=== PATIENT | male | born 1940 | race Caucasian/White ===

== ENCOUNTER 2022-04-09 15:06 | Inpatient (IN) ==
[2022-04-09] MEDS ORDERED: DEXAMETHASONE 4 MG/1 ML VIAL IV STA (16:50)
[2022-04-09 17:16] LABS: Basophils % 0.4 % (0.0-0.8); Eosinophils # 0.1 10*3/uL (0.0-0.87); Eosinophils % 1.2 % (0.00-10.9); Hematocrit 40.5 VOL% (42.0-52.0); Hemoglobin 12.1 GM/DL (14.0-18.0); Immature Granulocytes % 0.4 %; Immature Granulocytes Absolute 0.02 #; Lymphocytes % 19.7 % (21.2-54.2); Mean Corpuscular HGB Conc 29.9 GM/DL (32-36); Mean Corpuscular Volume 85.6 FL (87-102); Monocytes # 0.6 10*3/uL (0.11-0.8); Monocytes % 12.2 % (1.7-12.7); Neutrophils % 66.1 % (38.7-73.9); Platelet Count 189 T/CUMM (130-400); Red Blood Count 4.73 MC/CUMM (3.8-5.5); Red Cell Distribution Width 15.7 % (9.3-17.3); White Blood Count 5.2 T/CUMM (4-12)
[2022-04-09 17:17] LABS: Alanine Aminotransferase 19 U/L (16-61); Alkaline Phosphatase 161 U/L (45-117); Aspartate Amino Transferase 21 U/L (0-37); Bilirubin,Total < 0.39 MG/DL (0.20-1.00); Blood Urea Nitrogen 11 MG/DL (7-18); Carbon Dioxide 34 MMOL/L (21-32); Chloride 103 MMOL/L (98-107); Glucose 128 MG/DL (74-106); Osmolality,Calculated 281.3 MOS/KG (273-304); Potassium 3.7 MMOL/L (3.5-5.1); Sodium 141 MMOL/L (136-145); Total Protein 6.6 G/DL (6.4-8.2)
[2022-04-09] MEDS ORDERED: ONDANSETRON 4 MG/2 ML VIAL IV PRN (17:33)
[2022-04-09] MEDS ORDERED: DOCUSATE SODIUM 100 MG CAPSULE PO PRN (17:33)
[2022-04-09] MEDS ORDERED: guaiFENesin/DM ER 600-30 MG TABLET PO PRN (17:33)
[2022-04-09] MEDS ORDERED: ALBUTEROL 2.5 MG/3 ML NEB RESP TX PRN (17:33)
[2022-04-09] MEDS ORDERED: GLUCAGON 1 MG VIAL IM PRN (17:33)
[2022-04-09] MEDS ORDERED: MORPHINE 2 MG/1 ML SYRINGE IV PRN (17:33)
[2022-04-09] MEDS ORDERED: ACETAMINOPHEN 325 MG TABLET PO PRN (17:33)
[2022-04-09] MEDS ORDERED: DEXTROSE 10% 250 ML BAG IV PRN (17:41)
[2022-04-09] MEDS: hydrALAZINE 20 MG/1 ML VIAL IV PRN (18:45)
[2022-04-09] MEDS: cefTRIAXone 1,000 MG in SODIUM CHLORIDE 0.9% 100 ML IV SCH (18:55)
[2022-04-09 19:10] LABS: Calcium Oxalate Crystals,Urine Occasional /HPF (Few); Mucus,Urine Few /LPF (Occasional); RBC,Urine 8 /HPF (0-4); Urine Appearance Clear (Clear); Urine Color Yellow (Yellow); Urine Specific Gravity 1.023 (1.001-1.035)
[2022-04-09 19:11] LABS: Bilirubin,Urine Negative (Negative); Blood, Urine Negative (Negative); Glucose,Urine (UA) Negative (Negative); Ketones,Urine Trace mg/dL (Negative); Nitrite,Urine Negative (Negative); Protein,Urine Negative (Negative); Urine Urobilinogen 0.2 eU/dL (<2.0)
[2022-04-09] MEDS: AZITHROMYCIN INJ 500 MG in SODIUM CHLORIDE 0.9% 250 ML IV SCH (19:25)
[2022-04-09] MEDS: ALBUTEROL/IPRATROPIUM 3 ML NEB RESP TX SCH (19:26)
[2022-04-09] MEDS: LOSARTAN 50 MG TABLET PO SCH (21:01)
[2022-04-10] MEDS: ALBUTEROL/IPRATROPIUM 3 ML NEB RESP TX SCH ×4 (00:26→19:58)
[2022-04-10] MEDS: DEXAMETHASONE 4 MG/1 ML VIAL IV SCH ×5 (01:01→23:11)
[2022-04-10 05:16] LABS: Hematocrit 40.2 VOL% (42.0-52.0); Immature Granulocytes % 0.3 %; Immature Granulocytes Absolute 0.01 #; Lymphocytes # 0.9 10*3/uL (1.4-4.0); Mean Corpuscular HGB Conc 29.4 GM/DL (32-36); Mean Corpuscular Volume 85.7 FL (87-102); Mean Platelet Volume 9.8 FL (9.6-12.0); Monocytes # 0.1 10*3/uL (0.11-0.8); Monocytes % 1.3 % (1.7-12.7); Neutrophils % 74.4 % (38.7-73.9); Platelet Count 186 T/CUMM (130-400); Red Blood Count 4.69 MC/CUMM (3.8-5.5); Red Cell Distribution Width 15.8 % (9.3-17.3); White Blood Count 3.8 T/CUMM (4-12)
[2022-04-10 05:22] LABS: Hemoglobin 11.8 GM/DL (14.0-18.0)
[2022-04-10 05:43] LABS: Alanine Aminotransferase 17 U/L (16-61); Albumin 2.7 G/DL (3.4-5.0); Alkaline Phosphatase 152 U/L (45-117); Aspartate Amino Transferase 14 U/L (0-37); Bilirubin,Total < 0.39 MG/DL (0.20-1.00); Blood Urea Nitrogen 12 MG/DL (7-18); Calcium 10.1 MG/DL (8.5-10.1); Carbon Dioxide 33 MMOL/L (21-32); Chloride 103 MMOL/L (98-107); Cholesterol 176 MG/DL (50-200); Glucose 193 MG/DL (74-106); HDL Cholesterol 57 MG/DL (40-60); Osmolality,Calculated 283.4 MOS/KG (273-304); Potassium 4.2 MMOL/L (3.5-5.1); Risk Ratio 3.09; Sodium 140 MMOL/L (136-145); Thyroid Stimulating Hormone 0.955 uIU/ml (0.358-3.74); Total Protein 6.8 G/DL (6.4-8.2); Triglycerides 57 MG/DL (2-150)
[2022-04-10 06:04] LABS: Anisocytosis Slight; Band Neutrophils 3 % (0-10); Lymphocytes 20 % (20-55); Platelet Estimate Normal; Total Cells Counted 100
[2022-04-10] MEDS ORDERED: DIAZEPAM 5 MG TABLET PO ONE (08:34)
[2022-04-10] MEDS: INSULIN REGULAR 100 UNIT/ML SUBCUT SCH ×2 (10:12→17:23)
[2022-04-10] MEDS: PANTOPRAZOLE 40 MG TABLET PO SCH (10:37)
[2022-04-10] MEDS: LOSARTAN 50 MG TABLET PO SCH ×2 (10:37→21:27)
[2022-04-10] MEDS: TAMSULOSIN 0.4 MG CAPSULE PO SCH (16:10)
[2022-04-10] MEDS: allopurinoL 100 MG TABLET PO SCH (16:10)
[2022-04-10] MEDS: POLYETHYLENE GLYCOL POWDER 17 GM PACK PO SCH (16:10)
[2022-04-10] MEDS: ATORVASTATIN 10 MG TABLET PO SCH (16:10)
[2022-04-10] MEDS: cefTRIAXone 1,000 MG in SODIUM CHLORIDE 0.9% 100 ML IV SCH (17:01)
[2022-04-10] MEDS: AZITHROMYCIN INJ 500 MG in SODIUM CHLORIDE 0.9% 250 ML IV SCH (17:45)
[2022-04-11] MEDS: ALBUTEROL/IPRATROPIUM 3 ML NEB RESP TX SCH ×4 (00:11→19:18)
[2022-04-11] MEDS: DEXAMETHASONE 4 MG/1 ML VIAL IV SCH ×4 (04:14→23:05)
[2022-04-11 05:17] LABS: Hematocrit 36.6 VOL% (42.0-52.0); Immature Granulocytes % 0.7 %; Immature Granulocytes Absolute 0.05 #; Lymphocytes # 0.6 10*3/uL (1.4-4.0); Lymphocytes % 8.8 % (21.2-54.2); Mean Corpuscular HGB Conc 30.1 GM/DL (32-36); Mean Corpuscular Volume 84.9 FL (87-102); Mean Platelet Volume 9.7 FL (9.6-12.0); Monocytes # 0.3 10*3/uL (0.11-0.8); Monocytes % 4.5 % (1.7-12.7); Platelet Count 190 T/CUMM (130-400); Red Blood Count 4.31 MC/CUMM (3.8-5.5); Red Cell Distribution Width 15.7 % (9.3-17.3); White Blood Count 6.7 T/CUMM (4-12)
[2022-04-11 05:41] LABS: Alanine Aminotransferase 17 U/L (16-61); Albumin 2.5 G/DL (3.4-5.0); Alkaline Phosphatase 130 U/L (45-117); Aspartate Amino Transferase 13 U/L (0-37); Bilirubin,Total < 0.39 MG/DL (0.20-1.00); Blood Urea Nitrogen 21 MG/DL (7-18); Calcium 9.6 MG/DL (8.5-10.1); Carbon Dioxide 33 MMOL/L (21-32); Chloride 104 MMOL/L (98-107); Glucose 194 MG/DL (74-106); Osmolality,Calculated 290.1 MOS/KG (273-304); Potassium 3.9 MMOL/L (3.5-5.1); Sodium 142 MMOL/L (136-145); Total Protein 6.2 G/DL (6.4-8.2)
[2022-04-11] MEDS: allopurinoL 100 MG TABLET PO SCH (09:30)
[2022-04-11] MEDS: POLYETHYLENE GLYCOL POWDER 17 GM PACK PO SCH (09:30)
[2022-04-11] MEDS: LOSARTAN 50 MG TABLET PO SCH ×2 (09:31→21:19)
[2022-04-11] MEDS: PANTOPRAZOLE 40 MG TABLET PO SCH (09:31)
[2022-04-11] MEDS: ATORVASTATIN 10 MG TABLET PO SCH (09:31)
[2022-04-11] MEDS: TAMSULOSIN 0.4 MG CAPSULE PO SCH (09:31)
[2022-04-11] MEDS: INSULIN REGULAR 100 UNIT/ML SUBCUT SCH ×2 (09:37→17:54)
[2022-04-11] MEDS: cefTRIAXone 1,000 MG in SODIUM CHLORIDE 0.9% 100 ML IV SCH (17:55)
[2022-04-11] MEDS: AZITHROMYCIN INJ 500 MG in SODIUM CHLORIDE 0.9% 250 ML IV SCH (19:45)
[2022-04-12 05:47] LABS: Alanine Aminotransferase 18 U/L (16-61); Albumin 2.5 G/DL (3.4-5.0); Alkaline Phosphatase 122 U/L (45-117); Aspartate Amino Transferase 16 U/L (0-37); Bilirubin,Total < 0.39 MG/DL (0.20-1.00); Blood Urea Nitrogen 26 MG/DL (7-18); Calcium 9.2 MG/DL (8.5-10.1); Carbon Dioxide 34 MMOL/L (21-32); Chloride 106 MMOL/L (98-107); Glucose 202 MG/DL (74-106); Osmolality,Calculated 293.1 MOS/KG (273-304); Potassium 4.1 MMOL/L (3.5-5.1); Sodium 142 MMOL/L (136-145)
[2022-04-12 05:52] LABS: Hematocrit 37.4 VOL% (42.0-52.0); Hemoglobin 11.1 GM/DL (14.0-18.0); Immature Granulocytes % 0.9 %; Immature Granulocytes Absolute 0.06 #; Lymphocytes # 0.5 10*3/uL (1.4-4.0); Lymphocytes % 7.6 % (21.2-54.2); Mean Corpuscular HGB Conc 29.7 GM/DL (32-36); Mean Corpuscular Volume 85.4 FL (87-102); Mean Platelet Volume 10.4 FL (9.6-12.0); Monocytes # 0.3 10*3/uL (0.11-0.8); Monocytes % 3.9 % (1.7-12.7); Neutrophils % 87.6 % (38.7-73.9); Platelet Count 186 T/CUMM (130-400); Red Blood Count 4.38 MC/CUMM (3.8-5.5); Red Cell Distribution Width 15.9 % (9.3-17.3); White Blood Count 6.9 T/CUMM (4-12)
[2022-04-12] MEDS: ALBUTEROL/IPRATROPIUM 3 ML NEB RESP TX SCH ×3 (07:17→19:10)
[2022-04-12] MEDS: DEXAMETHASONE 4 MG/1 ML VIAL IV SCH ×4 (07:31→23:46)
[2022-04-12] MEDS: ATORVASTATIN 10 MG TABLET PO SCH (09:54)
[2022-04-12] MEDS: TAMSULOSIN 0.4 MG CAPSULE PO SCH (09:54)
[2022-04-12] MEDS: POLYETHYLENE GLYCOL POWDER 17 GM PACK PO SCH (09:55)
[2022-04-12] MEDS: PANTOPRAZOLE 40 MG TABLET PO SCH (09:55)
[2022-04-12] MEDS: LOSARTAN 50 MG TABLET PO SCH ×2 (09:55→21:26)
[2022-04-12] MEDS: allopurinoL 100 MG TABLET PO SCH (09:55)
[2022-04-12] MEDS: INSULIN REGULAR 100 UNIT/ML SUBCUT SCH ×4 (09:57→21:26)
[2022-04-12] MEDS: cefTRIAXone 1,000 MG in SODIUM CHLORIDE 0.9% 100 ML IV SCH (17:19)
[2022-04-12] MEDS: AZITHROMYCIN INJ 500 MG in SODIUM CHLORIDE 0.9% 250 ML IV SCH (17:39)
[2022-04-13] MEDS: ALBUTEROL/IPRATROPIUM 3 ML NEB RESP TX SCH ×4 (00:03→19:25)
[2022-04-13] MEDS: DEXAMETHASONE 4 MG/1 ML VIAL IV SCH ×4 (05:18→23:50)
[2022-04-13 05:59] LABS: Alanine Aminotransferase 19 U/L (16-61); Albumin 2.4 G/DL (3.4-5.0); Alkaline Phosphatase 110 U/L (45-117); Aspartate Amino Transferase 14 U/L (0-37); Bilirubin,Total < 0.39 MG/DL (0.20-1.00); Blood Urea Nitrogen 23 MG/DL (7-18); Carbon Dioxide 34 MMOL/L (21-32); Chloride 107 MMOL/L (98-107); Glucose 151 MG/DL (74-106); Osmolality,Calculated 292.8 MOS/KG (273-304); Potassium 3.9 MMOL/L (3.5-5.1); Sodium 144 MMOL/L (136-145); Total Protein 5.9 G/DL (6.4-8.2)
[2022-04-13 06:01] LABS: Hematocrit 37.8 VOL% (42.0-52.0); Hemoglobin 11.2 GM/DL (14.0-18.0); Immature Granulocytes % 0.7 %; Immature Granulocytes Absolute 0.04 #; Lymphocytes # 0.5 10*3/uL (1.4-4.0); Lymphocytes % 8.8 % (21.2-54.2); Mean Corpuscular HGB Conc 29.6 GM/DL (32-36); Mean Corpuscular Volume 86.1 FL (87-102); Mean Platelet Volume 10.9 FL (9.6-12.0); Monocytes # 0.3 10*3/uL (0.11-0.8); Monocytes % 5.4 % (1.7-12.7); Neutrophils % 85.1 % (38.7-73.9); Platelet Count 168 T/CUMM (130-400); Red Blood Count 4.39 MC/CUMM (3.8-5.5); Red Cell Distribution Width 15.9 % (9.3-17.3); White Blood Count 5.6 T/CUMM (4-12)
[2022-04-13] MEDS: POLYETHYLENE GLYCOL POWDER 17 GM PACK PO SCH (09:36)
[2022-04-13] MEDS: allopurinoL 100 MG TABLET PO SCH (09:37)
[2022-04-13] MEDS: INSULIN REGULAR 100 UNIT/ML SUBCUT SCH ×4 (09:37→21:59)
[2022-04-13] MEDS: TAMSULOSIN 0.4 MG CAPSULE PO SCH (09:37)
[2022-04-13] MEDS: LOSARTAN 50 MG TABLET PO SCH ×2 (09:37→21:59)
[2022-04-13] MEDS: ATORVASTATIN 10 MG TABLET PO SCH (09:37)
[2022-04-13] MEDS: PANTOPRAZOLE 40 MG TABLET PO SCH (09:37)
[2022-04-13] MEDS ORDERED: amLODIPine 5 MG TABLET PO ONE (15:00)
[2022-04-13] MEDS: cefTRIAXone 1,000 MG in SODIUM CHLORIDE 0.9% 100 ML IV SCH (17:09)
[2022-04-13] MEDS: AZITHROMYCIN INJ 500 MG in SODIUM CHLORIDE 0.9% 250 ML IV SCH (17:53)
[2022-04-13] MEDS: hydrALAZINE 20 MG/1 ML VIAL IV PRN (22:00)
[2022-04-14] MEDS: ALBUTEROL/IPRATROPIUM 3 ML NEB RESP TX SCH ×4 (00:50→19:18)
[2022-04-14] MEDS: DEXAMETHASONE 4 MG/1 ML VIAL IV SCH ×4 (05:46→23:40)
[2022-04-14] MEDS: hydrALAZINE 20 MG/1 ML VIAL IV PRN ×2 (06:42→22:00)
[2022-04-14] MEDS: PANTOPRAZOLE 40 MG TABLET PO SCH (09:13)
[2022-04-14] MEDS: TAMSULOSIN 0.4 MG CAPSULE PO SCH (09:13)
[2022-04-14] MEDS: allopurinoL 100 MG TABLET PO SCH (09:13)
[2022-04-14] MEDS: ATORVASTATIN 10 MG TABLET PO SCH (09:14)
[2022-04-14] MEDS: amLODIPine 5 MG TABLET PO SCH (09:14)
[2022-04-14] MEDS: LOSARTAN 50 MG TABLET PO SCH ×2 (09:14→21:59)
[2022-04-14] MEDS: INSULIN REGULAR 100 UNIT/ML SUBCUT SCH ×4 (09:15→22:00)
[2022-04-14] MEDS: POLYETHYLENE GLYCOL POWDER 17 GM PACK PO SCH (09:15)
[2022-04-14] MEDS: cefTRIAXone 1,000 MG in SODIUM CHLORIDE 0.9% 100 ML IV SCH (18:39)
[2022-04-14] MEDS: AZITHROMYCIN INJ 500 MG in SODIUM CHLORIDE 0.9% 250 ML IV SCH (19:14)
[2022-04-14] MEDS ORDERED: INSULIN GLARGINE 100 UNIT/ML SUBCUT SCH (21:00)
[2022-04-15] MEDS: ALBUTEROL/IPRATROPIUM 3 ML NEB RESP TX SCH ×2 (00:10→08:15)
[2022-04-15 05:42] LABS: Alanine Aminotransferase 26 U/L (16-61); Albumin 2.6 G/DL (3.4-5.0); Alkaline Phosphatase 136 U/L (45-117); Aspartate Amino Transferase 24 U/L (0-37); Bilirubin,Total < 0.39 MG/DL (0.20-1.00); Blood Urea Nitrogen 24 MG/DL (7-18); Calcium 9.1 MG/DL (8.5-10.1); Carbon Dioxide 33 MMOL/L (21-32); Chloride 102 MMOL/L (98-107); Glucose 177 MG/DL (74-106); Osmolality,Calculated 286.4 MOS/KG (273-304); Potassium 3.6 MMOL/L (3.5-5.1); Sodium 140 MMOL/L (136-145)
[2022-04-15] MEDS: DEXAMETHASONE 4 MG/1 ML VIAL IV SCH (05:50)
[2022-04-15 06:03] LABS: Basophils % 0.1 % (0.0-0.8); Hematocrit 42.4 VOL% (42.0-52.0); Hemoglobin 12.9 GM/DL (14.0-18.0); Immature Granulocytes % 0.7 %; Immature Granulocytes Absolute 0.05 #; Lymphocytes # 0.4 10*3/uL (1.4-4.0); Lymphocytes % 6.1 % (21.2-54.2); Mean Corpuscular HGB Conc 30.4 GM/DL (32-36); Mean Corpuscular Volume 82.5 FL (87-102); Mean Platelet Volume 9.6 FL (9.6-12.0); Monocytes # 0.5 10*3/uL (0.11-0.8); Monocytes % 7.1 % (1.7-12.7); Platelet Count 137 T/CUMM (130-400); Red Blood Count 5.14 MC/CUMM (3.8-5.5); White Blood Count 6.9 T/CUMM (4-12)
[2022-04-15 06:07] LABS: Hypochromia 1+
[2022-04-15 06:08] LABS: Microcytosis 1+; Platelet Estimate Adequate
[2022-04-15] MEDS: INSULIN REGULAR 100 UNIT/ML SUBCUT SCH ×2 (08:33→12:41)
[2022-04-15] MEDS: POLYETHYLENE GLYCOL POWDER 17 GM PACK PO SCH (08:34)
[2022-04-15] MEDS: ATORVASTATIN 10 MG TABLET PO SCH (08:35)
[2022-04-15] MEDS: PANTOPRAZOLE 40 MG TABLET PO SCH (08:35)
[2022-04-15] MEDS: LOSARTAN 50 MG TABLET PO SCH (08:35)
[2022-04-15] MEDS: TAMSULOSIN 0.4 MG CAPSULE PO SCH (08:35)
[2022-04-15] MEDS: allopurinoL 100 MG TABLET PO SCH (08:35)
[2022-04-15] MEDS: amLODIPine 5 MG TABLET PO SCH (08:36)
[2022-04-15 12:15] VITALS: BP 173/95
== END 2022-04-15 13:50 | disposition home health service (06) | DRG 180 ==
LOC: N.ED 15:06 → N.EDINP 17:33 → SUATTDRO 17:33 → N.TELES 18:53
PROVIDERS: ADMIT Internal Medicine; ATTEND Internal Medicine